=== PATIENT | female | born 1945 | race African-American/Black ===

== ENCOUNTER 2017-01-23 09:40 | Emergency (ER) | payer OTHER, MEDICAID ==
[~2017-01-23] VITALS: Ht 172.7 cm; Wt 144.2 kg
[~2017-01-23 09:40] MED LIST: ACIPHEX20 M1 PO; ACTOS45 MG PO; ALBUTEROL SULFAT8 MG PO; ANTI-DIARRHEAL2 M1 PO; ASPIR 8181 MG PO; B COMPLEX1 TA4 PO; BUMEX1 MG PO; CELEBREX200 MG PO; CELECOXIB200 MG; CLONAZEPAM2 M1 PO; CLOTRIMAZOLE AN1 CRE; COMBIVENT MDI14.7 GM PO; HYDROCO/APAP TAB 10-325MG; LASIX40 M1 PO; LINZESS290 MCG PO; LOTRIMIN 1%30 GM; MACROBID100 M1 PO; METFORMIN500 MG PO; NIZORAL2% TP; NORCO 10/325 MG1 TAB PO; PREMARIN0.3 M1 PO; PREMARIN1.25 M1 PO; PROTONIX40 MG PO; ROBITUSSIN/CODEI5 ML PO; THEO-24200 MG PO; TRAMADOL HCL50 MG; TRAMADOL50 MG PO; ULORIC 40 MG; ULTRAM50 MG PO; VALIUM10 M1; VALIUM10 MG PO; ZOLPIDEM TART10 MG PO
--- NOTE | 2017-01-23 09:40 | NUR ---
Patient was BIBA at this time.
--- NOTE | 2017-01-23 09:50 | NUR ---
Patient taken to bed 05 via gurney per EMS.
[2017-01-23 10:10] VITALS: BP 127/67
--- NOTE | 2017-01-23 10:10 | NUR ---
PATIENT PRESENTS TO ED WITH C/O LOW BACK PAIN RADIATING TO LLE , URINE INCONTINENT LAST NIGHT; CHEST TIGHTNESS WHICH RESOLVED AFTER 325MG ASA PO GIVEN BY [facility] STABBING HEADACHE AND BILATERAL KNEE PAIN HX---COPD, CHF, SCIATIC, DM, NEUROPATHY, RUPTURED 4/5 VERTEBRAE . DENIES N/V/D; SKIN IS PINK/WARM/DRY; AAOX4 WITH EVEN AND STEADY GAIT; LUNGS CLEAR BL; HR EVEN AND REGULAR; PT DENIES ANY FEVER, CP, SOB, OR COUGH AT THIS TIME; PATIENT STATES PAIN OF 10/10 AT THIS TIME; VSS; PATIENT POSITIONED FOR COMFORT; HOB ELEVATED; BEDRAILS UP X2; BED DOWN. ER MD MADE AWARE OF PT STATUS.
[2017-01-23] MEDS ORDERED: NACL 0.9% 1,000 ML IV SCH (10:13)
[2017-01-23] MEDS ORDERED: MORPHINE SULFATE 4 MG/ML SYR IVP ONE ×2 (10:15→12:45)
--- NOTE | 2017-01-23 10:30 | NUR ---
XRAY at bedside.
--- NOTE | 2017-01-23 11:03 | NUR ---
Patient going to CT via eris wynn.
--- NOTE | 2017-01-23 11:16 | NUR ---
Patient back from CT via eris bernal.
[2017-01-23] MEDS ORDERED: MORPHINE SULFATE 4 MG/ML SYR ONE (12:42)
[2017-01-23 13:40] VITALS: BP 113/66
--- NOTE | 2017-01-23 13:40 | NUR ---
Patient discharged with v/s stable. Written and verbal after care instructions given and explained. Patient alert, oriented and verbalized understanding of instructions. Wheel Chair Assisted with to car. All questions addressed prior to discharge. ID band removed. Patient advised to follow up with PMD. Rx of ATIVAN, NORCO given. Patient educated on indication of medication including possible reaction and side effects. Opportunity to ask questions provided and answered.
== END 2017-01-23 13:40 | disposition home or self-care (01) ==
LOC: MED 09:40
DX: R51 Headache (principal); M54.5 Low back pain; M25.562 Pain in left knee; M25.561 Pain in right knee; J40 Bronchitis, not specified as acute or chronic; J44.9 Chronic obstructive pulmonary disease, unspecified; E66.01 Morbid (severe) obesity due to excess calories; I50.9 Heart failure, unspecified; I48.91 Unspecified atrial fibrillation; E11.9 Type 2 diabetes mellitus without complications; Z96.659 Presence of unspecified artificial knee joint; Z88.6 Allergy status to analgesic agent
CPT/HCPCS: 36415; 70450; 71010; 80053; 81001; 82150; 82553; 83690; 83880; 84484; 85025; 85610; 85730; 87086; 93005; 96361; 96374; 96376; 99285; J2270; J7030; Q0092

== ENCOUNTER 2018-03-13 10:10 | Inpatient (IN) | payer OTHER ==
[~2018-03-13] VITALS: Ht 167.6 cm; Wt 140.6 kg
[~2018-03-13 10:10] MED LIST changes: +ACET-787 PO; -ACIPHEX20 M1 PO; -ACTOS45 MG PO; -ALBUTEROL SULFAT8 MG PO; -ANTI-DIARRHEAL2 M1 PO; +ASPI81EC97 PO; -ASPIR 8181 MG PO; -B COMPLEX1 TA4 PO; +BUME1TAB4 PO; -BUMEX1 MG PO; +CELE-136; +CELE200C PO; -CELEBREX200 MG PO; -CELECOXIB200 MG; -CLONAZEPAM2 M1 PO; -CLOTRIMAZOLE AN1 CRE; -COMBIVENT MDI14.7 GM PO; +DIAZ10TA7 PO; +KETO2CRE31 TP; -LASIX40 M1 PO; +LINA290C PO; -LINZESS290 MCG PO; +LOPE2TAB42 PO; -LOTRIMIN 1%30 GM; -MACROBID100 M1 PO; -METFORMIN500 MG PO; -NIZORAL2% TP; -NORCO 10/325 MG1 TAB PO; +PANT40EC PO; +PRE.3 PO; -PREMARIN0.3 M1 PO; -PREMARIN1.25 M1 PO; -PROTONIX40 MG PO; +ROBAC PO; -ROBITUSSIN/CODEI5 ML PO; -THEO-24200 MG PO; +TRAM50TA3; +TRAM50TA3 PO; -TRAMADOL HCL50 MG; -TRAMADOL50 MG PO; -ULORIC 40 MG; -ULTRAM50 MG PO; -VALIUM10 M1; -VALIUM10 MG PO; -ZOLPIDEM TART10 MG PO; +[UNRECOGNIZED DRUG - CODE] PO
[2018-03-13 10:12] VITALS: BP 124/81
[2018-03-13] MEDS ORDERED: ASPIRIN 81 MG TAB.CHEW PO ONE (11:00)
[2018-03-13] MEDS ORDERED: FUROSEMIDE 40 MG/4 ML VIAL IVP ONE (11:00)
[2018-03-13 11:27] LABS: WHITE BLOOD COUNT (AUTO) 4.1 K/uL (4.8-10.8)
[2018-03-13 11:38] LABS: EOSINOPHILS # (AUTO) 0.1 K/uL (0-0.4); EOSINOPHILS % (AUTO) 2.9 % (0.0-4.0); HEMATOCRIT 33.5 % (36-48); HEMOGLOBIN 10.7 g/dL (12.0-16.0); LYMPHOCYTES # (AUTO) 1.9 K/uL (2.5-16.5); LYMPHOCYTES % (AUTO) 46.4 % (20.5-51.1); MEAN CORPUSCULAR HEMOGLOBIN 27 pg (27-31); MEAN CORPUSCULAR HGB CONC 32 g/dL (33-37); MEAN CORPUSCULAR VOLUME 83.5 fL (80-94); MONOCYTES # (AUTO) 0.3 K/uL (0.8-1.0); MONOCYTES % (AUTO) 7.4 % (1.7-9.3); NEUTROPHILS # (AUTO) 1.7 K/uL (1.8-7.7); NEUTROPHILS % (AUTO) 42.3 % (42.2-75.2); PLATELET COUNT (AUTO) 205 K/uL (140-450); RED BLOOD CELL COUNT(AUTO) 4.01 MIL/uL (4.20-5.40); RED CELL DISTRIBUTION WIDTH 14.1 % (11.6-13.7)
[2018-03-13 11:39] LABS: ANION GAP 10.1 (8-16); CARBON DIOXIDE 30.1 mmol/L (21-32); CREATININE 0.9 mg/dL (0.6-1.3)
[2018-03-13 11:43] LABS: PROTHROMBIN TIME 9.7 secs (10.8-13.4)
[2018-03-13 11:45] LABS: ALBUMIN 3.4 g/dL (3.4-5.0); TOTAL BILIRUBIN 0.4 mg/dL (0.0-1.0)
[2018-03-13 11:48] LABS: POTASSIUM 5.2 mmol/L (3.5-5.1)
[2018-03-13 11:55] LABS: MAGNESIUM 1.9 mg/dL (1.8-2.4)
[2018-03-13] MEDS ORDERED: ONDANSETRON 4 MG/2 ML VIAL IM/IVP PRN (12:30)
[2018-03-13] MEDS ORDERED: LORazepam 2 MG/ML VIAL IM/IVP PRN (12:30)
[2018-03-13] MEDS ORDERED: DOCUSATE SODIUM 100 MG GELCAP PO PRN (12:30)
[2018-03-13] MEDS ORDERED: ZOLPIDEM 5 MG TAB PO PRN (12:30)
[2018-03-13] MEDS ORDERED: ACETAMINOPHEN 325 MG TAB PO PRN (12:30)
[2018-03-13] MEDS ORDERED: KETOROLAC 15 MG/ML VIAL IVP PRN (12:30)
[2018-03-13] MEDS ORDERED: DEXTROSE 50% 50 ML SYR IVP PRN (12:35)
[2018-03-13] MEDS ORDERED: INSULIN LISPRO SLIDING SCALE 100 UNITS/ML VIAL SUBQ PRN (12:35)
[2018-03-13 12:43] LABS: APPEARANCE,URINE CLEAR (CLEAR); BILIRUBIN,URINE NEGATIVE (NEGATIVE); BLOOD, URINE NEGATIVE (NEGATIVE); COLOR,URINE YELLOW (YELLOW); NITRITE, URINE NEGATIVE (NEGATIVE); PH,URINE 7.5 (5.0-9.0); UGLUCOSE NEGATIVE (NEGATIVE)
[2018-03-13 12:53] LABS: LEUKOCYTE ESTERASE ,URINE TRACE (NEGATIVE); RBC,URINE 0-5 (RARE) /HPF (0-5); WBC,URINE 0-5 (RARE) /HPF (0-5)
[2018-03-13] MEDS ORDERED: SODIUM POLYSTYRENE 15 GM/60 ML UDBTL PO SCH (13:00)
[2018-03-13 13:09] LABS: BARBITURATE, URINE NEG. ng/ml (NEG <=200); BENZODIAZEPINE, URINE POS. ng/mL (NEG <=200); CANNABINOID, URINE NEG. ng/mL (NEG <=50); COCAINE, URINE NEG. ng/mL (NEG <=300); OPIATE, URINE NEG. ng/mL (NEG <=2000); PHENCYCLIDINE SCREEN,URINE NEG. ng/mL (NEG <=25)
[2018-03-13] MEDS ORDERED: guaiFENesin/CODEINE 100/10MG 5 ML UDC PO PRN (13:10)
[2018-03-13 13:16] LABS: CHOL/HDL RATIO 2.8 (1-4.5); MAGNESIUM 1.8 mg/dL (1.8-2.4); PHOSPHORUS 4.3 mg/dL (2.5-4.9); THYROID STIMULATING HORMONE 1.22 uIU/mL (0.34-3.74)
[2018-03-13] MEDS ORDERED: ALBUTEROL SULFATE/IPRATROPIU 3 ML SOL IH PRN (13:20)
[2018-03-13] MEDS ORDERED: SODIUM POLYSTYRENE 15 GM/60 ML UDBTL PR SCH (14:00)
[2018-03-13 14:39] LABS: URIC ACID 4.7 mg/dL (2.6-7.2)
[2018-03-13 16:00] VITALS: BP 131/84
[2018-03-13] MEDS: BLOOD GLUCOSE MONITORING 1 DEV DEV FS SCH ×2 (16:47→20:45)
[2018-03-13] MEDS: NACL 0.9% 1,000 ML IV SCH (16:54)
[2018-03-13] MEDS: traMADol 50 MG TAB PO SCH (17:00)
[2018-03-13] MEDS: BUMETANIDE 1 MG TAB PO SCH (17:23)
[2018-03-13] MEDS: DIAZEPAM 5 MG TAB PO SCH (17:24)
[2018-03-13] MEDS: HYDROcodone/APAP 10/325 MG 1 TAB TAB PO SCH (17:24)
[2018-03-13] MEDS: ALBUTEROL SULFATE/IPRATROPIU 3 ML SOL IH SCH (18:55)
[2018-03-13 20:00] VITALS: BP 111/71
[2018-03-13] MEDS: CELECOXIB 100 MG CAP PO SCH (20:46)
[2018-03-13] MEDS ORDERED: KETOCONAZOLE 2% 15 GM TUBE TP SCH (21:00)
[2018-03-13] MEDS ORDERED: ESTROGENS CONJUGATED 0.3 MG TAB PO SCH (21:00)
[2018-03-14] VITALS (7 sets, daily range): BP systolic 101–126; BP diastolic 65–74
[2018-03-14] MEDS: PANTOPRAZOLE 40 MG TABEC PO SCH (05:38)
[2018-03-14] MEDS: BLOOD GLUCOSE MONITORING 1 DEV DEV FS SCH ×4 (05:41→20:31)
[2018-03-14] MEDS: ALBUTEROL SULFATE/IPRATROPIU 3 ML SOL IH SCH ×3 (06:46→19:51)
[2018-03-14 07:24] LABS: BASOPHILS % (AUTO) 0.3 % (0.0-2.0); EOSINOPHILS # (AUTO) 0.1 K/uL (0-0.4); EOSINOPHILS % (AUTO) 2.3 % (0.0-4.0); HEMATOCRIT 32.7 % (36-48); HEMOGLOBIN 10.5 g/dL (12.0-16.0); LYMPHOCYTES # (AUTO) 2.2 K/uL (2.5-16.5); LYMPHOCYTES % (AUTO) 53.3 % (20.5-51.1); MEAN CORPUSCULAR HEMOGLOBIN 27 pg (27-31); MEAN CORPUSCULAR HGB CONC 32 g/dL (33-37); MEAN CORPUSCULAR VOLUME 83.4 fL (80-94); MONOCYTES # (AUTO) 0.3 K/uL (0.8-1.0); MONOCYTES % (AUTO) 8.1 % (1.7-9.3); NEUTROPHILS # (AUTO) 1.5 K/uL (1.8-7.7); PLATELET COUNT (AUTO) 193 K/uL (140-450); RED BLOOD CELL COUNT(AUTO) 3.92 MIL/uL (4.20-5.40); RED CELL DISTRIBUTION WIDTH 14.1 % (11.6-13.7); WHITE BLOOD COUNT (AUTO) 4.1 K/uL (4.8-10.8)
[2018-03-14 07:36] LABS: ANION GAP 12.2 (8-16); CARBON DIOXIDE 28.8 mmol/L (21-32); CREATININE 1.1 mg/dL (0.6-1.3)
[2018-03-14 07:48] LABS: MAGNESIUM 1.8 mg/dL (1.8-2.4); PHOSPHORUS 6.1 mg/dL (2.5-4.9)
[2018-03-14] MEDS: LACTOBACILLUS RHAMNOSUS GG 1 EACH CAP PO SCH (08:19)
[2018-03-14] MEDS: BUMETANIDE 1 MG TAB PO SCH ×2 (08:20→17:49)
[2018-03-14] MEDS: ASPIRIN 81 MG TAB.CHEW PO SCH (08:20)
[2018-03-14] MEDS: LOSARTAN 25 MG TAB PO SCH (08:20)
[2018-03-14] MEDS: CELECOXIB 100 MG CAP PO SCH ×2 (08:21→20:17)
[2018-03-14] MEDS: DIAZEPAM 5 MG TAB PO SCH ×3 (09:00→17:00)
[2018-03-14] MEDS: CARVEDILOL 3.125 MG TAB PO SCH (09:00)
[2018-03-14] MEDS: HYDROcodone/APAP 10/325 MG 1 TAB TAB PO SCH ×3 (09:00→17:00)
[2018-03-14] MEDS: traMADol 50 MG TAB PO SCH ×3 (09:00→17:00)
[2018-03-14] MEDS ORDERED: FUROSEMIDE 40 MG/4 ML VIAL IVP SCH (11:00)
[2018-03-14 11:45] LABS: FREE T4 (FREE THYROXINE) 0.98 ng/dL (0.76-1.46); THYROID STIMULATING HORMONE 1.15 uIU/mL (0.34-3.74)
[2018-03-14] MEDS: CALCIUM ACETATE 667 MG TAB PO SCH ×2 (11:51→17:49)
[2018-03-14] MEDS: NACL 0.9% 1,000 ML IV SCH (12:28)
[2018-03-15 04:05] VITALS: BP 124/74
[2018-03-15] MEDS: PANTOPRAZOLE 40 MG TABEC PO SCH (06:00)
[2018-03-15] MEDS: BLOOD GLUCOSE MONITORING 1 DEV DEV FS SCH ×4 (06:06→21:02)
[2018-03-15] MEDS: ALBUTEROL SULFATE/IPRATROPIU 3 ML SOL IH SCH ×3 (06:49→19:00)
[2018-03-15 07:18] LABS: BASOPHILS % (AUTO) 0.2 % (0.0-2.0); EOSINOPHILS # (AUTO) 0.1 K/uL (0-0.4); EOSINOPHILS % (AUTO) 2.9 % (0.0-4.0); HEMATOCRIT 34.8 % (36-48); LYMPHOCYTES # (AUTO) 2.2 K/uL (2.5-16.5); MEAN CORPUSCULAR HEMOGLOBIN 27 pg (27-31); MEAN CORPUSCULAR HGB CONC 32 g/dL (33-37); MEAN CORPUSCULAR VOLUME 83.6 fL (80-94); MONOCYTES # (AUTO) 0.4 K/uL (0.8-1.0); MONOCYTES % (AUTO) 9.7 % (1.7-9.3); NEUTROPHILS # (AUTO) 1.5 K/uL (1.8-7.7); NEUTROPHILS % (AUTO) 36.2 % (42.2-75.2); PLATELET COUNT (AUTO) 205 K/uL (140-450); RED BLOOD CELL COUNT(AUTO) 4.16 MIL/uL (4.20-5.40); WHITE BLOOD COUNT (AUTO) 4.3 K/uL (4.8-10.8)
[2018-03-15 07:33] LABS: ANION GAP 10.3 (8-16); CARBON DIOXIDE 31.9 mmol/L (21-32); CREATININE 1.1 mg/dL (0.6-1.3); POTASSIUM 4.2 mmol/L (3.5-5.1)
[2018-03-15 07:40] LABS: MAGNESIUM 1.9 mg/dL (1.8-2.4); PHOSPHORUS 5.6 mg/dL (2.5-4.9)
[2018-03-15 08:00] VITALS: BP 104/72
[2018-03-15 08:36] LABS: T4 (THYROXINE) 7.6 ug/dL (4.5-12.0)
[2018-03-15] MEDS: CARVEDILOL 3.125 MG TAB PO SCH (09:00)
[2018-03-15] MEDS: LOSARTAN 25 MG TAB PO SCH (09:00)
[2018-03-15] MEDS: HYDROcodone/APAP 10/325 MG 1 TAB TAB PO SCH ×3 (09:00→16:53)
[2018-03-15] MEDS: traMADol 50 MG TAB PO SCH (09:00)
[2018-03-15] MEDS: ASPIRIN 81 MG TAB.CHEW PO SCH (09:03)
[2018-03-15] MEDS: CELECOXIB 100 MG CAP PO SCH ×2 (09:04→21:20)
[2018-03-15] MEDS: CALCIUM ACETATE 667 MG TAB PO SCH ×3 (09:04→16:52)
[2018-03-15] MEDS: LACTOBACILLUS RHAMNOSUS GG 1 EACH CAP PO SCH (09:05)
[2018-03-15] MEDS: DIAZEPAM 5 MG TAB PO SCH ×3 (09:06→16:52)
[2018-03-15] MEDS: BUMETANIDE 1 MG TAB PO SCH ×2 (09:11→16:53)
[2018-03-15] MEDS: NACL 0.9% 1,000 ML IV SCH (11:44)
[2018-03-15 12:00] VITALS: BP 135/75
[2018-03-15 12:18] LABS: FOLIC ACID 8.2 ng/mL (>3.0)
[2018-03-15] MEDS ORDERED: traMADol 50 MG TAB PO PRN (13:20)
[2018-03-15] MEDS ORDERED: DIAZEPAM 5 MG TAB PO SCH ×2 (13:30→17:00)
[2018-03-15 16:00] VITALS: BP 115/72
[2018-03-15 20:00] VITALS: BP 82/53
[2018-03-16] VITALS: BP 82/52
[2018-03-16 04:00] VITALS: BP 113/66
[2018-03-16] MEDS: BLOOD GLUCOSE MONITORING 1 DEV DEV FS SCH ×2 (05:32→11:46)
[2018-03-16] MEDS: PANTOPRAZOLE 40 MG TABEC PO SCH (06:42)
[2018-03-16] MEDS: ALBUTEROL SULFATE/IPRATROPIU 3 ML SOL IH SCH ×2 (07:11→14:11)
[2018-03-16 07:50] LABS: BASOPHILS % (AUTO) 0.5 % (0.0-2.0); EOSINOPHILS # (AUTO) 0.2 K/uL (0-0.4); EOSINOPHILS % (AUTO) 4.7 % (0.0-4.0); HEMATOCRIT 34.5 % (36-48); HEMOGLOBIN 10.9 g/dL (12.0-16.0); LYMPHOCYTES # (AUTO) 2.2 K/uL (2.5-16.5); LYMPHOCYTES % (AUTO) 51.3 % (20.5-51.1); MEAN CORPUSCULAR HEMOGLOBIN 26 pg (27-31); MEAN CORPUSCULAR HGB CONC 32 g/dL (33-37); MEAN CORPUSCULAR VOLUME 83.4 fL (80-94); MONOCYTES # (AUTO) 0.4 K/uL (0.8-1.0); MONOCYTES % (AUTO) 10.3 % (1.7-9.3); NEUTROPHILS # (AUTO) 1.4 K/uL (1.8-7.7); NEUTROPHILS % (AUTO) 33.2 % (42.2-75.2); PLATELET COUNT (AUTO) 206 K/uL (140-450); RED BLOOD CELL COUNT(AUTO) 4.14 MIL/uL (4.20-5.40); RED CELL DISTRIBUTION WIDTH 14.1 % (11.6-13.7); WHITE BLOOD COUNT (AUTO) 4.2 K/uL (4.8-10.8)
[2018-03-16 08:00] VITALS: BP 119/76
[2018-03-16 08:18] LABS: POTASSIUM 4.2 mmol/L (3.5-5.1)
[2018-03-16 08:19] LABS: ANION GAP 12.2 (8-16); CREATININE 1.4 mg/dL (0.6-1.3)
[2018-03-16 08:29] LABS: MAGNESIUM 1.9 mg/dL (1.8-2.4); PHOSPHORUS 5.6 mg/dL (2.5-4.9)
[2018-03-16] MEDS: HYDROcodone/APAP 10/325 MG 1 TAB TAB PO SCH ×2 (09:00→12:38)
[2018-03-16] MEDS: CALCIUM ACETATE 667 MG TAB PO SCH ×2 (10:43→12:08)
[2018-03-16] MEDS: BUMETANIDE 1 MG TAB PO SCH (10:43)
[2018-03-16] MEDS: ASPIRIN 81 MG TAB.CHEW PO SCH (10:44)
[2018-03-16] MEDS: LOSARTAN 25 MG TAB PO SCH (10:44)
[2018-03-16] MEDS: DIAZEPAM 5 MG TAB PO SCH ×2 (10:45→12:38)
[2018-03-16] MEDS: CARVEDILOL 3.125 MG TAB PO SCH (10:47)
[2018-03-16] MEDS: CELECOXIB 100 MG CAP PO SCH (10:47)
[2018-03-16] MEDS ORDERED: BUME1TAB4 PO (10:56)
[2018-03-16] MEDS ORDERED: ASPI81EC97 PO (10:56)
[2018-03-16] MEDS ORDERED: CELE200C PO (10:56)
[2018-03-16] MEDS ORDERED: CARV3.122 PO (11:00)
[2018-03-16] MEDS ORDERED: LOSA25TA1 PO (11:00)
[2018-03-16] MEDS: LACTOBACILLUS RHAMNOSUS GG 1 EACH CAP PO SCH (11:21)
[2018-03-16 12:00] VITALS: BP 110/70
[2018-03-16] MEDS ORDERED: ATOR10TA PO (12:21)
[2018-03-16] MEDS: NACL 0.9% 1,000 ML IV SCH (12:28)
[2018-03-16] MEDS ORDERED: fentaNYL 0.05 MG/ML VIAL ONE (12:44)
[2018-03-16] MEDS ORDERED: MIDAZOLAM 2 MG/2 ML VIAL ONE ×2 (12:45→12:46)
[2018-03-16 16:00] VITALS: BP 120/75
== END 2018-03-16 16:40 | disposition home health service (06) | DRG 73 ==
LOC: MED 10:10 → MTU 12:28
PROVIDERS: ADMIT General Practice; ATTEND General Practice
PROC: 0G9G3ZX Drainage of Left Thyroid Gland Lobe, Percutaneous Approach, Diagnostic (ICD-10-PCS; principal; 2018-03-15)
DX: E11.42 Type 2 diabetes mellitus with diabetic polyneuropathy (principal); I50.43 Acute on chronic combined systolic (congestive) and diastolic (congestive) heart failure; N39.0 Urinary tract infection, site not specified; E44.0 Moderate protein-calorie malnutrition; Z68.43 Body mass index [BMI] 50.0-59.9, adult; I11.0 Hypertensive heart disease with heart failure; E87.5 Hyperkalemia; E11.65 Type 2 diabetes mellitus with hyperglycemia; D64.9 Anemia, unspecified; E66.01 Morbid (severe) obesity due to excess calories; J44.9 Chronic obstructive pulmonary disease, unspecified; I49.9 Cardiac arrhythmia, unspecified; I25.10 Atherosclerotic heart disease of native coronary artery without angina pectoris; G89.29 Other chronic pain; M54.9 Dorsalgia, unspecified; M54.2 Cervicalgia; M51.36 Other intervertebral disc degeneration, lumbar region; E04.1 Nontoxic single thyroid nodule; M19.072 Primary osteoarthritis, left ankle and foot; M19.071 Primary osteoarthritis, right ankle and foot; I87.2 Venous insufficiency (chronic) (peripheral); E78.5 Hyperlipidemia, unspecified; E83.39 Other disorders of phosphorus metabolism; D72.819 Decreased white blood cell count, unspecified; I48.0 Paroxysmal atrial fibrillation; Z88.6 Allergy status to analgesic agent; Z79.82 Long term (current) use of aspirin; Z79.899 Other long term (current) drug therapy; Z90.49 Acquired absence of other specified parts of digestive tract; Z82.3 Family history of stroke; Z80.42 Family history of malignant neoplasm of prostate; Z80.1 Family history of malignant neoplasm of trachea, bronchus and lung; Z87.891 Personal history of nicotine dependence
CPT/HCPCS: 36415; 70490; 71045; 73630; 76536; 76641; 76942; 80048; 80053; 80305; 81001; 82607; 82746; 82948; 83036; 83540; 83690; 83735; 83880; 84100; 84134; 84436; 84439; 84443; 84479; 84484; 84550; 85025; 85045; 85610; 85730; 87081; 87086; 88305; 93005; 93925; 93970; 94640; 96374; 97110; 97116; 97140; 97530; 97535; 99285; J0696; J1644; J1815; J1940; J2250; J3010; J7030; J7060; J7620; Q0092

== ENCOUNTER 2018-05-15 15:06 | Emergency (ER) | payer OTHER ==
[~2018-05-15] VITALS: Ht 167.6 cm; Wt 140.6 kg
[~2018-05-15 15:06] MED LIST changes: -ACET-787 PO; +ATOR10TA PO; -BUME1TAB4 PO; +CARV3.122 PO; -CELE-136; -HYDROCO/APAP TAB 10-325MG; -KETO2CRE31 TP; -LINA290C PO; -LOPE2TAB42 PO; +LOSA25TA1 PO; -PANT40EC PO; -PRE.3 PO; -ROBAC PO; -TRAM50TA3; -TRAM50TA3 PO; -[UNRECOGNIZED DRUG - CODE] PO
[2018-05-15 15:09] VITALS: BP 133/87
--- NOTE | 2018-05-15 15:12 | NUR ---
PT TO BED 10 VIA STRETCHER.
--- NOTE | 2018-05-15 15:30 | NUR ---
PT BIBA FOR SUDDEN HEADACHE AND WEAKNESS. PT STATES SHE WAS AT REST WHEN SYMPTOMS STARTED. PT STATES SHE HAS A HX OF NECK INJURY IN EARLY WHICH SHE STATES ITS HER REASON FOR SYMPTOMS. VSS; PATIENT POSITIONED FOR COMFORT; HOB ELEVATED; BEDRAILS UP X1; BED DOWN. ER MD MADE AWARE OF PT STATUS.
[2018-05-15 16:30] LABS: BASOPHILS % (AUTO) 0.4 % (0.0-2.0); EOSINOPHILS # (AUTO) 0.1 K/uL (0-0.4); EOSINOPHILS % (AUTO) 2.3 % (0.0-4.0); HEMATOCRIT 34.9 % (36-48); HEMOGLOBIN 11.2 g/dL (12.0-16.0); LYMPHOCYTES # (AUTO) 2.3 K/uL (2.5-16.5); LYMPHOCYTES % (AUTO) 59.5 % (20.5-51.1); MEAN CORPUSCULAR HEMOGLOBIN 27 pg (27-31); MEAN CORPUSCULAR HGB CONC 32 g/dL (33-37); MEAN CORPUSCULAR VOLUME 83.7 fL (80-94); MONOCYTES # (AUTO) 0.3 K/uL (0.8-1.0); MONOCYTES % (AUTO) 6.7 % (1.7-9.3); NEUTROPHILS # (AUTO) 1.2 K/uL (1.8-7.7); NEUTROPHILS % (AUTO) 31.1 % (42.2-75.2); PLATELET COUNT (AUTO) 204 K/uL (140-450); RED BLOOD CELL COUNT(AUTO) 4.16 MIL/uL (4.20-5.40); RED CELL DISTRIBUTION WIDTH 13.8 % (11.6-13.7); WHITE BLOOD COUNT (AUTO) 3.8 K/uL (4.8-10.8)
[2018-05-15 16:37] LABS: BILIRUBIN,URINE NEGATIVE (NEGATIVE); BLOOD, URINE NEGATIVE (NEGATIVE); COLOR,URINE YELLOW (YELLOW); LEUKOCYTE ESTERASE ,URINE 1+ (NEGATIVE); NITRITE, URINE NEGATIVE (NEGATIVE); UGLUCOSE NEGATIVE (NEGATIVE)
[2018-05-15 16:38] LABS: APPEARANCE,URINE HAZY (CLEAR)
[2018-05-15 16:51] LABS: ALBUMIN 3.6 g/dL (3.4-5.0); ANION GAP 12.3 (8-16); CARBON DIOXIDE 28.7 mmol/L (21-32); TOTAL BILIRUBIN 0.5 mg/dL (0.0-1.0)
[2018-05-15 17:12] LABS: RBC,URINE 0-5 (RARE) /HPF (0-5)
[2018-05-15 17:24] LABS: PROTHROMBIN TIME 9.7 secs (10.8-13.4)
[2018-05-15 17:50] VITALS: BP 133/87
== END 2018-05-15 17:50 | disposition home or self-care (01) ==
LOC: MED 15:06
DX: N39.0 Urinary tract infection, site not specified (principal); J45.909 Unspecified asthma, uncomplicated; I11.0 Hypertensive heart disease with heart failure; I50.9 Heart failure, unspecified; E11.9 Type 2 diabetes mellitus without complications; I48.91 Unspecified atrial fibrillation; Z90.710 Acquired absence of both cervix and uterus; Z88.5 Allergy status to narcotic agent; Z79.899 Other long term (current) drug therapy
CPT/HCPCS: 36415; 71045; 80053; 81001; 83880; 84484; 85025; 85610; 85730; 87086; 93005; 99285; Q0092

== ENCOUNTER 2018-09-14 14:37 | Emergency (ER) | payer OTHER ==
[~2018-09-14] VITALS: Ht 170.2 cm; Wt 96.6 kg
[2018-09-14 14:40] VITALS: BP 113/70
[2018-09-14 15:42] VITALS: BP 118/78
== END 2018-09-14 15:42 | disposition home or self-care (01) ==
LOC: MED 14:37
DX: L08.9 Local infection of the skin and subcutaneous tissue, unspecified (principal); J44.9 Chronic obstructive pulmonary disease, unspecified; I50.9 Heart failure, unspecified; I11.0 Hypertensive heart disease with heart failure; E11.9 Type 2 diabetes mellitus without complications; Z79.899 Other long term (current) drug therapy; Z88.5 Allergy status to narcotic agent; Z79.82 Long term (current) use of aspirin
CPT/HCPCS: 99283

== ENCOUNTER 2018-09-26 09:17 | Emergency (ER) | payer OTHER, MEDICAID ==
[~2018-09-26] VITALS: Ht 170.2 cm; Wt 127.0 kg
--- NOTE | 2018-09-26 09:34 | NUR ---
PT TO BED 7 VIA WHEELCHAIR
[2018-09-26 09:39] VITALS: BP 132/75
--- NOTE | 2018-09-26 09:40 | NUR ---
AAO x4 72 yr old female with c/o persistant rash, pruritis >1 month. Denies pain at this time. Seen in our er Sep 14, 2018 dx contact dermatitis. Patient has not seen her pmd for this issue yet hx--knee replacement, a-fib, arthritis, neuropathy, dm rx---can not remember at this time
[2018-09-26 12:05] VITALS: BP 135/75
--- NOTE | 2018-09-26 12:05 | NUR ---
Patient discharged with v/s stable. Written and verbal after care instructions given and explained. Patient alert, oriented and verbalized understanding of instructions. Wheel Chair Assisted with to car. All questions addressed prior to discharge. ID band removed. Patient advised to follow up with PMD. Rx of Claritin, Fluocinolone given. Patient educated on indication of medication including possible reaction and side effects. Opportunity to ask questions provided and answered.
== END 2018-09-26 12:05 | disposition home or self-care (01) ==
LOC: MED 09:17
DX: L30.9 Dermatitis, unspecified (principal); J44.9 Chronic obstructive pulmonary disease, unspecified; I11.0 Hypertensive heart disease with heart failure; I50.9 Heart failure, unspecified; E11.9 Type 2 diabetes mellitus without complications; Z79.82 Long term (current) use of aspirin; Z79.899 Other long term (current) drug therapy; Z88.5 Allergy status to narcotic agent
CPT/HCPCS: 99283

== ENCOUNTER 2018-12-13 14:34 | Emergency (ER) | payer OTHER, MEDICAID ==
[~2018-12-13] VITALS: Ht 175.3 cm; Wt 145.1 kg
[2018-12-13 14:34] VITALS: BP 122/82
--- NOTE | 2018-12-13 14:34 | NUR ---
PATIENT BIB [facility] TO ER BED 6.
--- NOTE | 2018-12-13 14:45 | NUR ---
PT IS A 73 Y/0 FEMALE BIB EMS WHO PRESENTS TO THE ED C/O SOB. PER EMS, PT WAS AT HOME WHEN SHE SNIFFED SMOKE AND BEGAN TO HAVE SOB, COUGH, CHEST TIGHTNESS. PT REPORTS 6/10 ACHING HEADACHE PAIN THAT DOES NOT RADIATE. PT DENIES N/V/D. PT AWAKE AND ALERT, RR EVEN/UNLABORED, O2 SAT 94 ON 3L NC. PT REPOSITIONED FOR COMFORT, BED IN LOWEST POSITION. ER MD DR. KNOTT NOTIFIED. WILL CONTINUE TO MONITOR. PMH--AFIB, COPD, CHF, DM ALLERGIES---DILAUDID
--- NOTE | 2018-12-13 15:43 | NUR ---
CHAPERONED DR KNOTT FOR RECTAL EXAM. PT TOLERATED WELL.
[2018-12-13 15:46] LABS: EOSINOPHILS # (AUTO) 0.1 K/uL (0-0.4); HEMOGLOBIN 12.2 g/dL (12.0-16.0); MEAN CORPUSCULAR HGB CONC 32 g/dL (33-37); MONOCYTES # (AUTO) 0.5 K/uL (0.8-1.0); NEUTROPHILS # (AUTO) 3.1 K/uL (1.8-7.7)
[2018-12-13 15:48] LABS: BASOPHILS # (AUTO) 0.1 K/uL (0.00-0.22); BASOPHILS % (AUTO) 0.9 % (0.0-2.0); HEMATOCRIT 37.7 % (36-48); LYMPHOCYTES # (AUTO) 2.5 K/uL (2.5-16.5); LYMPHOCYTES % (AUTO) 40.9 % (20.5-51.1); MEAN CORPUSCULAR HEMOGLOBIN 27 pg (27-31); MEAN CORPUSCULAR VOLUME 84.3 fL (80-94); MONOCYTES % (AUTO) 7.7 % (1.7-9.3); NEUTROPHILS % (AUTO) 49.5 % (42.2-75.2); PLATELET COUNT (AUTO) 197 K/uL (140-450); RED BLOOD CELL COUNT(AUTO) 4.48 MIL/uL (4.20-5.40); WHITE BLOOD COUNT (AUTO) 6.2 K/uL (4.8-10.8)
[2018-12-13 15:57] LABS: ANION GAP 13.5 (8-16); CARBON DIOXIDE 26.4 mmol/L (21-32); CHLORIDE 104 mmol/L (98-107); GLUCOSE 106 mg/dL (74-106); POTASSIUM 3.9 mmol/L (3.5-5.1); SODIUM SERUM 140 mmol/L (136-145); UREA NITROGEN, BLOOD 19 mg/dL (7-18)
--- NOTE | 2018-12-13 16:00 | NUR ---
CLINICAL MEDICAL ASSISTANT AT BEDSIDE.
[2018-12-13 16:03] LABS: ALBUMIN 3.6 g/dL (3.4-5.0); ASPARTATE AMINOTRANSFERASE 16 U/L (15-37); TOTAL BILIRUBIN 0.7 mg/dL (0.0-1.0)
[2018-12-13 16:06] LABS: PROTHROMBIN TIME 9.6 secs (10.8-13.4)
[2018-12-13 18:49] VITALS: BP 124/68
--- NOTE | 2018-12-13 18:49 | NUR ---
Patient discharged with v/s stable. Written and verbal after care instructions given and explained. Patient alert, oriented and verbalized understanding of instructions. Ambulatory with to car. All questions addressed prior to discharge. ID band removed. Patient advised to follow up with PMD. Rx of Prednisone given. Patient educated on indication of medication including possible reaction and side effects. Opportunity to ask questions provided and answered.
== END 2018-12-13 18:49 | disposition home or self-care (01) ==
LOC: MED 14:34
DX: R06.02 Shortness of breath (principal); R07.89 Other chest pain; R11.2 Nausea with vomiting, unspecified; J45.909 Unspecified asthma, uncomplicated; I10 Essential (primary) hypertension; E11.9 Type 2 diabetes mellitus without complications; Z79.1 Long term (current) use of non-steroidal anti-inflammatories (NSAID); Z79.899 Other long term (current) drug therapy; Z88.6 Allergy status to analgesic agent; Z98.890 Other specified postprocedural states
CPT/HCPCS: 36415; 71045; 80053; 82948; 83880; 84484; 85025; 85610; 85730; 93005; 99284; Q0092